=== PATIENT | male | born 1995 | race Caucasian/White ===

== ENCOUNTER 2017-08-20 14:37 | Emergency (ER) | payer OTHER ==
[2017-08-20 14:43] VITALS: RESP 16; TEMP 97.9
--- NOTE | 2017-08-20 15:15 | EDPHY ---
H & P Time Seen by Provider: 08/20/17 14:56 HPI/ROS: CHIEF COMPLAINT: Left knee pain HISTORY OF PRESENT ILLNESS: This patient is a 22 year old male complaining of left knee pain onset today. Ten years ago, he sustained a bucket handle tear to the same knee, diagnosed by MRI. He frequently re-injures the knee in the same area with similar symptoms; generally his knee "locks up" and he is able to relieve this with various maneuvers. Today, he was vacuuming and developed severe pain in his left knee, especially with movement. He is able to bend it, but has significant discomfort in the knee. He is able to walk. He denies any other injuries or recent trauma. ROS: No numbness, weakness, excessive bleeding, syncopal episode, other injury. Past Medical/Surgical History: 1. Asthma 2. Eczema. 3. Previous left knee injury. 4. Right knee surgery Social History: Student at [employer]. Nonsmoker. Single. Smoking Status: Never smoked Physical Exam: Alert, pleasant Extremities: Normal appearance of left knee. No tenderness. No joint effusion. Full range of motion, causes pain. Skin: Warm and dry, no lacerations or abrasions. Neuro: Motor and sensory intact Vascular: Capillary refill brisk distally Constitutional: Initial Vital Signs Temperature (C) 36.6 C 08/20/17 14:39 Heart Rate 65 08/20/17 14:39 Respiratory Rate 16 08/20/17 14:39 Blood Pressure 133/84 H 08/20/17 14:39 O2 Sat (%) 96 08/20/17 14:39 O2 Delivery Mode Room Air Allergies/Adverse Reactions: No Known Allergies Allergy (Unverified 08/20/17 14:43) Home Medications: Medication Instructions Recorded Ciclesonide [Alvesco] 1 puffs IH BID 01/23/13 Albuterol Sulfate [ALBUTEROL 0.63 mg IH Q6 PRN 08/25/14 SULFATE] Albuterol [Proventil Inhaler HFA 2 puffs IH Q4-6PRN PRN 08/25/14 (*)] risperiDONE [Risperdal-M] 1 mg SL HS #30 odt 08/30/14 Medical Decision Making - Diagnostics Imaging Results: Imaging Impressions Knee X-Ray 08/20/17 14:44 Impression: Normal left knee series. Imaging: I viewed and interpreted images myself ED Course/Re-evaluation: 22 y/o male with history of prior left knee injury presents with left knee pain secondary to an accidental injury earlier today. Exam reveals normal appearance of the left knee, no tenderness or joint effusion. He has full range of motion, but this causes pain. Plan for x-ray of left knee. Reviewed x-ray. X-ray normal, no acute osseous abnormalities. Discussed follow up with orthopedic specialists for further evaluation. He has had surgery on his right knee in the past. Discussed MRI to r/o meniscus tear vs. outpatient MRI with orthopedics. The patient requests to proceed with MRI at this time. 19:[address] Pedersen, radiologist. MRI shows tear of the posterior horn of the medial meniscus, and pes anserine bursitis. Intact cruciate ligaments. Reassessed patient. Discussed imaging results. Patient states he has already scheduled an appointment with his orthopedic radiologic technologist. He will receive his MRI images prior to departure. Follow up and return precautions discussed. He is comfortable with this plan. Differential Diagnosis: Differential diagnosis includes though it is not limited to fracture, dislocation, tendon disruption, neurovascular compromise. Departure - Departure Disposition: Home, Routine, Self-Care Clinical Impression: Tear meniscus knee Qualifiers: Tear current or old: current Encounter type: initial encounter Meniscus of knee : medial Meniscus tear of knee type: unspecified type Laterality: left Qualified Code(s): S83.242A - Other tear of medial meniscus, current injury, left knee, initial encounter Knee bursitis Qualifiers: Knee bursitis location: pes anserinus bursitis Laterality: left Qualified Code( s): M70.52 - Other bursitis of knee, left knee Condition: Good Instructions: Knee Bursitis (ED), Knee Pain (ED), Meniscus Tear (ED) Additional Instructions: 1. Follow up with an orthopedic radiologic technologist for further evaluation. We have referred you to our orthopedic surgeon stone gang sawyer. 2. Take ibuprofen or Tylenol as directed below for pain relief. 3. Return to the emergency department for increased pain, weakness, numbness, or tingling, inability to walk or straighten your leg, or other worsening of condition. Adult Pain & Fever Control: We recommend Acetaminophen (Tylenol) and Ibuprofen (Motrin,Advil) for pain and fever control. When fever is high or pain severe, both drugs can be used at the same time, but at different intervals. Please note the time differences. Your dose is: Acetaminophen 650mg every 4 to 6 hours Ibuprofen 600mg every 6-8 hours with food Note: do not take Acetaminophen with Hydrocodone (Vicodin, Lortab) or Oxycodone (Percocet). These medications also contain Acetaminophen. No more than 3000mg of Acetaminophen should be taken in 24 hours (for an adult). Referrals: Leoncio Ayala MD [Medical Doctor] - As per Instructions Report Scribed for: Zohra Sol Report Scribed by: Betty Vogel Date of Report: 08/20/17 Time of Report: 15:49 Physician Review and Approval Statement: 08/20/17 15:49 Portions of this note were transcribed by a medical coder. I personally performed a history, physical exam, medical decision making, and confirmed accuracy of information the transcribed note.
[2017-08-20 19:35] VITALS: BP 130/80; PULSE 60; O2SAT 95
== END 2017-08-20 19:33 | disposition home or self-care (01) ==
DX: S83.242A Other tear of medial meniscus, current injury, left knee, initial encounter (principal); M70.52 Other bursitis of knee, left knee; J45.909 Unspecified asthma, uncomplicated; X58.XXXA Exposure to other specified factors, initial encounter; Y99.8 Other external cause status; Y93.89 Activity, other specified